=== PATIENT | male | born 1970 | race Hispanic/Latino ===

== ENCOUNTER 2018-06-19 17:57 | Inpatient (IN) | payer MEDICAID ==
[2018-06-19 19:00] LABS: URINE BACTERIA RARE (<OCC); URINE BILIRUBIN NEGATIVE (NEGATIVE); URINE BLOOD 3+ (NEGATIVE); URINE CLARITY Clear (Clear); URINE COLOR Yellow (YELLOW); URINE GLUCOSE (UA) NORMAL (Normal); URINE LEUKOCYTE ESTERASE NEG Leu/uL (Negative); URINE PROTEIN NEGATIVE (NEGATIVE); URINE UROBILINOGEN NORMAL mg/dL (0.2-1.0)
[2018-06-19 19:12] LABS: BARBITURATES, UR NEGATIVE (NEGATIVE); BENZODIAZEPINES, UR NEGATIVE (NEGATIVE); OPIATES, UR NEGATIVE (NEGATIVE); PHENCYCLIDINE, UR NEGATIVE (NEGATIVE)
[2018-06-19 19:38] LABS: BASO % 0.6 % (0.0-2.0); EOS % 0.1 % (0.0-4.0); HEMOGLOBIN 15.5 g/dL (12.0-18.0); LYMPH # 0.9 K/uL (1.0-4.3); LYMPH % 12.1 % (20.0-40.0); MEAN CELL VOLUME 93.5 fL (80.0-94.0); MEAN CORPUSCULAR HEMOGLOBIN 32.5 pg (27.0-31.0); MEAN CORPUSCULAR HGB CONC 34.7 g/dL (33.0-37.0); MEAN PLATELET VOLUME 7.4 fL (7.2-11.7); MONO # 0.4 K/uL (0.0-0.8); MONO % 4.7 % (0.0-10.0); NEUT # 6.5 K/uL (1.8-7.0); NEUT % 82.5 % (50.0-75.0); NRBC % 0.1 % (0.0-2.0); RBC 4.77 Mil/uL (4.40-5.90); RED CELL DISTRIBUTION WIDTH 13.7 % (11.5-14.5); WHITE BLOOD COUNT 7.8 K/uL (4.8-10.8)
[2018-06-19 19:50] LABS: ACETAMINOPHEN < 10.0 ug/mL (10.0-30.0); SALICYLATE < 1.0 mg/dL 1
[2018-06-19 19:51] LABS: ALB/GLOB RATIO 1.5 (1.0-2.1); ALBUMIN 4.8 g/dL (3.5-5.0); ALT/SGPT 21 U/L (21-72); AST/SGOT 24 U/L (17-59); BLOOD UREA NITROGEN 13 mg/dL (9-20); CALCIUM 9.5 mg/dl (8.6-10.4); GFR NON-AFRICAN AMERICAN > 60
[2018-06-19] MEDS ORDERED: Bacitracin 500 Units/gm Oint Foilpak UD TOP STA (21:48)
--- NOTE | 2018-06-19 21:53 | C.PDOC ---
History Of Present Illness 48 y/o male presents to the ER for evaluation of suicidal ideation and polysubstance abuse. Pt states that he is depressed. He wants to hurt himself but he does not have a plan. He was feeling so depressed 4 days ago that he cut his left knee w/ knife, he cleaned it with peroxide and applied Neosporin. He notes that he has hx of suicide attempt. Pt also states that he is dependent on Methadone and ETOH. He is requesting crisis evaluation and and detox. He notes that his last drink was today and his last use of Methadone was today. He has nausea. Otherwise, pt denies having vomiting, hallucination, and homicidal ideation. Of note, he has a PMD in [place], [place]. Time Seen by Provider: 06/19/18 18:36 Chief Complaint (Nursing): Psychiatric Evaluation History Per: Patient History/Exam Limitations: no limitations Onset/Duration Of Symptoms: Days Current Symptoms Are (Timing): Still Present Severity: Moderate Past Medical History Reviewed: Historical Data, Nursing Documentation, Vital Signs Vital Signs: Last Vital Signs Temp 98.3 F 06/19/18 18:07 Pulse 103 H 06/19/18 18:07 Resp 18 06/19/18 18:07 BP 150/88 06/19/18 18:07 Pulse Ox 99 06/19/18 18:07 - Medical History PMH: Anxiety, Arthritis, Bipolar Disorder, Hepatitis Denies: Diabetes, HIV, HTN, Seizures, Sexually Transmitted Disease Surgical History: Cholecystectomy Other Surgeries: Ear surgery, bilateral knee surgery Family History: States: No Known Family Hx - Social History Hx Tobacco Use: No Hx Alcohol Use: Yes Hx Substance Use: Yes - Immunization History Hx Tetanus Toxoid Vaccination: Yes Hx Influenza Vaccination: No Hx Pneumococcal Vaccination: No Review Of Systems Except As Marked, All Systems Reviewed And Found Negative. Constitutional: Negative for: Fever, Chills Gastrointestinal: Positive for: Nausea. Negative for: Vomiting Psych: Positive for: Depression, Suicidal ideation Physical Exam - Physical Exam Appears: No Acute Distress, Other (alert, depressed) Skin: Normal Color, Warm, Dry, Other (approx 5 cm linear superficial laceration to left medial knee, clean, dry and intact, nontender) Head: Atraumatic, Normacephalic Eye(s): bilateral: Normal Inspection Nose: Normal Oral Mucosa: Moist Throat: No Erythema, No Exudate Neck: Supple Chest: Symmetrical Cardiovascular: Rhythm Regular Respiratory: Normal Breath Sounds, No Rales, No Rhonchi, No Wheezing Gastrointestinal/Abdominal: Normal Exam, Soft, No Tenderness, No Guarding, No Rebound Back: Normal Inspection Extremity: Normal ROM, No Deformity Neurological/Psych: Oriented x3, Normal Speech, Normal Motor, Normal Sensation ED Course And Treatment - Laboratory Results Result Diagrams: 06/19/18 19:34 06/19/18 19:34 O2 Sat by Pulse Oximetry: 99 (RA) Pulse Ox Interpretation: Normal Medical Decision Making Medical Decision Making: Impression: Depression, Polysubstance Abuse Medically stable for psychiatric admission Disposition - Disposition Disposition: HOSPITALIZED Disposition Time: 23:00 Condition: STABLE - POA Present On Arrival: None - Clinical Impression Clinical Impression: Bipolar disorder, Opioid use disorder, severe, dependence, Alcohol abuse - Scribe Statement The provider has reviewed the documentation as recorded by the Jessica Hernandez Provider Attestation: All medical record entries made by the Tanyaibingris were at my direction and personally dictated by me. I have reviewed the chart and agree that the record accurately reflects my personal performance of the history, physical exam, medical decision making, and the department course for this patient. I have also personally directed, reviewed, and agree with the discharge instructions and disposition.
[2018-06-19] MEDS ORDERED: Bacitracin 500 Units/gm Oint Foilpak UD ONE (21:55)
--- NOTE | 2018-06-19 22:58 | PCM.BM ---
<Jeovanny Molina - Last Filed: 06/19/18 22:56> Treatment Plan Problems - Problems identified on initial assessmt Bipolar disorder Date Initiated: 06/19/18 Time Initiated: 22:57 Status: Active Anxiety related to substance abuse Date Initiated: 06/19/18 Time Initiated: 22:57 Status: Active Treatment assets and liabiliti Patient Assests: adapts well, motivated, self-reliant, ADL independent, physically healthy, negotiates basic needs, cognitively intact Patient Liabilities: financial problems (Unemployed), relationship conflicts (Problems with siblings), substance abuse (Alcohol abuse, amphetamines, cannabinoids and alcohol), medical problems, imparied memory, legal issue (On probation) - Milieu Protocol Maintain good personal hygiene: daily Encourage regular showers, daily Remind patient to perform daily oral care, daily Assist patient to perform ADL's Conduct patient checks and document Observation sheet: Q15 minutes (For safety) Maintain personal safety: every shift Educate patient to report safety concerns to staff, every shift Monitor environment for contraband/sharps Medication safety: Monitor for expected outcome, potential side effects: every shift, Assess barriers to learning: every shift, Assess readiness for medication education: every shift <Shailesh Ortiz - Last Filed: 06/20/18 12:18> - Diagnosis (1) Bipolar disorder Status: Acute Interventions: 06/20/18 10:58 * Assess/adjust medications daily and /or as needed * See patient on an individual basis 7x/week to assess level of manic behaviors and stability * Discuss risks, benefits, side effects and alternatives of medications * (2) Opioid use disorder, severe, dependence Status: Acute Interventions: 06/20/18 12:18 * Assess 7x/week regarding severity of withdrawal * Educate regarding risks, benefits, side effects and alternatives of medications * Use Motivational Interviewing for abstinence * Use CBT for relapse prevention * Medication management for withdrawal symptoms * Encourage medication assisted treatment * <Jasmyn Diallo - Last Filed: 06/20/18 15:36> Family Contact Family involvement: Patient does not wish Family/SO involvement Family contact: Patient declines to allow family contact at present - Goals for Treatment Patient goals for treatment: "I want to go to an outpatient program." Discharge/Continuing Care - Education Needs Education Needs: Patient Medication, Patient Diagnosis/Disease Process, Patient Coping Skills, Patient Placement options, Patient Community resources - Discharge Discharge Criteria: Free of Suicidal thoughts, Normal sleep pattern, Ability to care for self, No longer exhibiting s/s of withdrawal, Reduction of target symptoms Discharge to:: Home - Treatment Team Participation Discussed with Family/SO: No Was Patient/Family/SO present at Treatment Team Meeting: Yes
--- NOTE | 2018-06-20 10:55 | PCM.PSYCH ---
Initial Psychiatric Evaluation - Initial Psychiatric Evaluation Type of Admission: Voluntary Legal Status: Capacity Chief Complaint (in patient's own words): I was feeling down and depressed.' History of Present Illness and Precipitating Events: This is a 48 yr old male with a previous psychiatric history of keny, depresion, bipolar disorder, anxiety who presented in the ER for suicidal ideation and polysubstance abuse. He has several previous admissions at [facility] due to previous history of suicide attempt. He states that he self medicates by smoking marijuana to avoid using heroin, and uses alcohol to control his anxiety and panic attacks. He was previously being treated outpatient at [facility] with [place], Klonopin, and paxil but stopped taking them due to lack of blood level monitoring by the Dr, cessation of prescription and forced self taper, and side effects respectively. He states that he is looking to taper off of methadone that he is currently taking. Patient reports depressed mood, at times feelings of hopelessness and helplessness, poor sleep and poor appetite. He reports irritability, agitation, and mood swings. He denies any auditory or visual hallucinations or any psychotic symptoms. Patient denies any withdrawal symptoms including abdominal cramps, anxiety, headaches and sweating. 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 He drinks approximately 1-2 pints of hard alcohol daily. His last drink was 1 pint of hard alcohol yestderday. He used adderall yesterday but admits that he knows he shouldn't because of his keny. He has been clean of heroin for 1.5yrs and has been on 14mg of methadone. Medical hx: Varices, Anxiety, arthritis, bipolar disorder, Hepatitis C Allergies:Denies Surgical hx: Cholecystectomy, ear surgery, bilateral knee surgery Hospitalization: Denies Family hx: No known family history Medications: Methadone 14mg/day Current Medications: Active Medications Generic Name Dose Route Start Last Admin Trade Name Freq PRN Reason Stop Dose Admin Pneumococcal Polyvalent Vaccine 0.5 ml 06/21/18 10:00 Pneumovax 23 Vaccine IM 06/21/18 10:01 .ONCE ONE Past Psychiatric History - Past Psychiatric History Previous Treatment History: Inpatient Pertinent Medical Hx (Current Medical&Sleep Prob, Allergies): Allergies Allergy/AdvReac Type Severity Reaction Status Date / Time No Known Allergies Allergy Verified 06/19/18 18:11 Methadone HCl [Methadose] 14 mg PO DAILY 06/19/18 Review of Systems - Review of Systems All systems: reviewed and no additional remarkable complaints except - Psychiatric Psychiatric: Anxiety, Irritability, Suicidal Ideation Mental Status Examination - Personal Presentation Personal Presentation: Looks stated age - Affect Affect: Constricted - Motor Activity Motor Activity: Calm - Reliability in Providing Information Reliability in Providing Information: Good - Speech Speech: Organized - Mood Mood: Anxious - Formal Thought Process Formal Thought Process: No Impairment - Obsessions/Compulsions Obsessions: No Compulsions: No - Cognitive Functions Orientation: Person, Place, Situation, Time Sensorium: Alert Attention/Concentration: Attentive Abstract Thinking: [place] Estimate of Intelligence: Below average Judgement: Imparied, as evidence by: Poor judgement, Imparied, as evidence by: Lack of insight into illness - Risk Risk: Suicidal, Diminished functioning - Strength & Assets Inventory Strength & Assets Inventory: Employment status - Limitations Limitations: Living alone DSM 5 DX - DSM 5 DSM 5 Diagnosis: Bipolar disorder mixed severe without psychotic features Opioid use disorder severe in early remission on maintenance therapy - Recommended/Plan of Treatment Treatment Recommendations and Plan of Treatment: Bipolar disorder mixed severe without psychotic features Opioid use disorder severe in early remission on maintenance therapy -CBT -Psychotherapy -Supportive therapy, group therapy, individual therapy -Atarax 25 mg PO Q6 prn -Trazodone 50 mg PO QHS prn -Neurontin 300 mg PO TID -Encourage MAT -Refer to rehab or IOP, and self-help groups -Smoking cessation with [place] -Nicotine patch if needed -[place] for abstinence - Smoking Cessation Smoking Cessation Initiated: No
--- NOTE | 2018-06-20 11:23 | CARD ---
APPROVED REPORT Date of service: 06/19/2018 EKG Measurement Heart [id number] <Conclusion> Normal sinus rhythm Normal ECG
[2018-06-21 06:56] VITALS: RESP 18
[2018-06-21] MEDS ORDERED: Pneumococcal 23-Valent Vaccine IM ONE (10:00)
--- NOTE | 2018-06-21 19:17 | PCM.PYCHPN ---
Psychiatric Progress Note - Psychiatric Progress Note Patient seen today, length of contact: 15 min Patient Chief Complaint: I was feeling down and depressed.' Problems Identified/Issues Discussed: Patient seen and evaluated, chart reviewed and discussed with the nurse. Pt reports depressed and irritable mood. He still reports irritability and agitation. He remained isolated and withdrawn, and confined to his room. Patient denies any withdrawal symptoms including abdominal cramps, anxiety, headaches and sweating. He denies any auditory hallucinations, visual hallucinations, or any paranoia. Patient is compliant with medications and denies any side effects. Symptoms are improving but pt needs more time to stabilize. Support and psychoeducation given. Medication Change: Yes Medical Record Reviewed: Yes Mental Status Examination - Cognitive Function Orientation: Person, Place, Situation, Time Memory: Intact Attention: WNL Concentration: Poor Association: WNL Fund of Knowledge: Poor - Mood Mood: Anxious - Affect Affect: Constricted - Speech Speech: Soft - Formal Thought Process Formal Thought Process: No Impairment - Suicidal Ideation Suicidal Ideation: No - Homicidal Ideation Homicidal Ideation: No Goal/Treatment Plan - Goal/Treatment Plan Need for Continued Stay: Severe depression anxiety, Severe functional impairment Progress Toward Problem(s) and Goals/Treatment Plan: Bipolar disorder mixed severe without psychotic features Opioid use disorder severe in early remission on maintenance therapy -CBT -Psychotherapy -Supportive therapy, group therapy, individual therapy -Atarax 25 mg PO Q6 prn -Trazodone 50 mg PO QHS prn -Neurontin 300 mg PO TID -Encourage MAT -Refer to rehab or IOP, and self-help groups -Smoking cessation with [place] -Nicotine patch if needed -[place] for abstinence - Smoking Cessation Smoking Cessation Initiated: No
--- NOTE | 2018-06-22 10:42 | PCM.PYCHPN ---
Psychiatric Progress Note - Psychiatric Progress Note Patient seen today, length of contact: 15 min Patient Chief Complaint: I was feeling down and depressed.' Problems Identified/Issues Discussed: Patient seen and evaluated, chart reviewed and discussed with the nurse. Pt reports depressed and irritable mood. He still reports irritability and agitation. He remained isolated and withdrawn, and confined to his room. Patient denies any withdrawal symptoms including abdominal cramps, anxiety, headaches and sweating. He denies any auditory hallucinations, visual hallucinations, or any paranoia. Patient is compliant with medications and denies any side effects. Symptoms are improving but pt needs more time to stabilize. Support and psychoeducation given. Medication Change: Yes Medical Record Reviewed: Yes Mental Status Examination - Cognitive Function Orientation: Person, Place, Situation, Time Memory: Intact Attention: WNL Concentration: Poor Association: WNL Fund of Knowledge: Poor - Mood Mood: Anxious - Affect Affect: Constricted - Speech Speech: Soft - Formal Thought Process Formal Thought Process: No Impairment - Suicidal Ideation Suicidal Ideation: No - Homicidal Ideation Homicidal Ideation: No Goal/Treatment Plan - Goal/Treatment Plan Need for Continued Stay: Severe depression anxiety, Severe functional impairment Progress Toward Problem(s) and Goals/Treatment Plan: Bipolar disorder mixed severe without psychotic features Opioid use disorder severe in early remission on maintenance therapy -CBT -Psychotherapy -Supportive therapy, group therapy, individual therapy -Atarax 25 mg PO Q6 prn -Trazodone 50 mg PO QHS prn -Neurontin 300 mg PO TID -Encourage MAT -Refer to rehab or IOP, and self-help groups -Smoking cessation with [place] -Nicotine patch if needed -[place] for abstinence
[2018-06-23 06:49] VITALS: O2SAT 100
--- NOTE | 2018-06-24 01:48 | PCM.PYCHPN ---
Psychiatric Progress Note - Psychiatric Progress Note Patient seen today, length of contact: 15 min Patient Chief Complaint: I m feeling much better.' Problems Identified/Issues Discussed: Patient seen and evaluated, chart reviewed and discussed with the nurse. Pt reports improvement in his mood and withdrawal symptoms. He denies any auditory hallucinations, visual hallucinations, or any paranoia. Patient is compliant with medications and denies any side effects. Symptoms are improving but pt needs more time to stabilize. Support and psychoeducation given. Medication Change: Yes Medical Record Reviewed: Yes Mental Status Examination - Cognitive Function Orientation: Person, Place, Situation, Time Memory: Intact Attention: WNL Concentration: WNL Association: WNL Fund of Knowledge: Poor - Mood Mood: Anxious - Affect Affect: Constricted - Speech Speech: Soft - Formal Thought Process Formal Thought Process: No Impairment - Suicidal Ideation Suicidal Ideation: No - Homicidal Ideation Homicidal Ideation: No Goal/Treatment Plan - Goal/Treatment Plan Need for Continued Stay: Severe depression anxiety, Severe functional impairment Progress Toward Problem(s) and Goals/Treatment Plan: Bipolar disorder mixed severe without psychotic features Opioid use disorder severe in early remission on maintenance therapy -CBT -Psychotherapy -Supportive therapy, group therapy, individual therapy -Atarax 25 mg PO Q6 prn -Trazodone 50 mg PO QHS prn -Neurontin 300 mg PO TID -Encourage MAT -Refer to rehab or IOP, and self-help groups -Smoking cessation with [place] -Nicotine patch if needed -[place] for abstinence
--- NOTE | 2018-06-24 08:14 | PCM.PYCHDC ---
Mental Status Examination - Mental Status Examination Orientation: Person, Place, Situation, Time Memory: Intact Mood: Neutral Affect: Constricted Speech: Soft Attention: WNL Concentration: WNL Association: WNL Fund of Knowledge: WNL Formal Thought Process: No Impairment Description of patient's judgement and insight: good, fair Psychotic Thoughts and Behaviors: denies any AVH Suicidal Ideation: No Current Homicidal Ideation?: No Discharge Summary - Discharge Note Reason for Hospitalization: This is a 48 yr old male with a previous psychiatric history of keny, depresion, bipolar disorder, anxiety who presented in the ER for suicidal ideation and polysubstance abuse. He has several previous admissions at [facility] due to previous history of suicide attempt. He states that he self medicates by smoking marijuana to avoid using heroin, and uses alcohol to control his anxiety and panic attacks. He was previously being treated outpatient at [facility] with [place], Klonopin, and paxil but stopped taking them due to lack of blood level monitoring by the Dr, cessation of prescription and forced self taper, and side effects respectively. He states that he is looking to taper off of methadone that he is currently taking. Patient reports depressed mood, at times feelings of hopelessness and helplessness, poor sleep and poor appetite. He reports irritability, agitation, and mood swings. He denies any auditory or visual hallucinations or any psychotic symptoms. Patient denies any withdrawal symptoms including abdominal cramps, anxiety, headaches and sweating. 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 He drinks approximately 1-2 pints of hard alcohol daily. His last drink was 1 pint of hard alcohol yestderday. He used adderall yesterday but admits that he knows he shouldn't because of his keny. He has been clean of heroin for 1.5yrs and has been on 14mg of methadone. Medical hx: Varices, Anxiety, arthritis, bipolar disorder, Hepatitis C Allergies:Denies Surgical hx: Cholecystectomy, ear surgery, bilateral knee surgery Hospitalization: Denies Family hx: No known family history Medications: Methadone 14mg/day Consultations:: List each consultation separately and include: 1. Reason for request. 2. Findings. 3. Follow-up Summary of Hospital Course include:: 1. Description of specific treatment plan utilized for patients during their course of treatmen. 2. Summarize the time- course for resolution of acute symptoms and/or regressed behaviors. 3. Describe issues identified and worked on during hospitalization. 4. Describe medication utilized. 5. Describe medical problems identified and treated. 6. Reassessment of suicide risk Summary of Hospital Course: During the course of his stay, patient (pt) started progressively improving and no longer remained irritable, depressed, and suicidal. His mood and anxiety were improved and he started attending groups and meetings and started socializing. Patient denied any feelings of hopelessness, helplessness, and worthlessness, denied any problem with the sleep or appetite, denied suicidal ideation or homicidal ideation. Pt denied any auditory or visual hallucinations. He denied any withdrawal symptoms. Pt was treated with medications along with supportive therapy, milieu therapy and group therapy. Some changes were made in his current medications and patient was discharged on following medications. He tolerated these medications very well and denied any side effects. - Diagnosis (1) Bipolar disorder Status: Acute (2) Opioid use disorder, severe, dependence Status: Acute - Final Diagnosis (DSM 5) Condition upon Discharge: STABLE DSM 5: Bipolar disorder mixed severe without psychotic features Opioid use disorder severe in early remission on maintenance therapy Disposition: HOME/ ROUTINE Follow-up Treatment Plan: Followup: He was discharged to the [facility] outpatient program. Education: Pt was educated and counseled about the risks and benefits of taking and not taking medications. Pt was educated and counseled about the risks of drinking and abusing drugs. Pt was educated and counseled to go to the ER or call 911 if pt develop suicidal ideation or homicidal ideation, worsening of symptoms or severe side effects of the meds. Prescriptions/Medication Reconciliation: Gabapentin [Neurontin] 400 mg PO BID #60 cap OXcarbazepine [Trileptal] 150 mg PO BID #60 tab traZODone [Desyrel] 100 mg PO HS PRN #30 tab PRN Reason: Insomnia - Smoking Cessation Smoking Cessation Medication prescribed: No - Antipsychotic Medications Pt discharged on 2 or more routine antipsychotic medications: No
[2018-06-24 10:32] VITALS: BP 108/74; PULSE 69; TEMP 97.6
== END 2018-06-24 10:00 | disposition home or self-care (01) | DRG 430 ==
LOC: C.ER 17:57 → C.5E 21:42
PROC: GZHZZZZ Group Psychotherapy (ICD-10-PCS; principal; 2018-06-19)
PROC: GZ56ZZZ Individual Psychotherapy, Supportive (ICD-10-PCS; 2018-06-19)
DX: F31.63 Bipolar disorder, current episode mixed, severe, without psychotic features (principal); F11.20 Opioid dependence, uncomplicated; F15.10 Other stimulant abuse, uncomplicated; R45.851 Suicidal ideations; F12.90 Cannabis use, unspecified, uncomplicated; F10.10 Alcohol abuse, uncomplicated; Y90.1 Blood alcohol level of 20-39 mg/100 ml